=== PATIENT | male | born 1980 | race Caucasian/White ===

== ENCOUNTER 2017-12-18 10:30 | Emergency (ER) | payer MEDICAID ==
[2017-12-18] MEDS: KETOROLAC 60 MG INJ IM (14:42)
[2017-12-18] MEDS: LIDOCAINE 1% (MDV) 20 ML INJ SC (17:19)
== END 2017-12-18 17:30 | disposition home or self-care (01) ==
LOC: FTE 10:30
DX: M79.605 Pain in left leg (principal)
CPT/HCPCS: 93971; 96372; 99285-25

== ENCOUNTER 2019-06-02 12:48 | Emergency (ER) | payer MEDICAID ==
[2019-06-02] MEDS: IBUPROFEN 200 MG TAB PO (14:41)
[2019-06-02] MEDS: HYDROCODONE/APAP (5/325) TAB PO (14:41)
[2019-06-02 14:54] LABS: ADD UMIC NO; UR ASCORBIC ACID NEGATIVE (NEGATIVE); UR BILIRUBIN (Dip) NEGATIVE (NEGATIVE); UR BLOOD (Dip) NEGATIVE (NEGATIVE); UR CLARITY CLEAR (CLEAR); UR COLOR YELLOW (YELLOW); UR GLUCOSE (Dip) NEGATIVE (NEGATIVE); UR KETONES (Dip) NEGATIVE (NEGATIVE); UR LEUKOCYTE ESTERASE (Dip) NEGATIVE Leu/ul (NEGATIVE); UR NITRITE (Dip) NEGATIVE (NEGATIVE); UR SPECIFIC GRAVITY (Dip) 1.011 (1.003-1.030); UR TOTAL PROTEIN (Dip) NEGATIVE (NEGATIVE); UR UROBILINOGEN (Dip) NEGATIVE (NEGATIVE)
== END 2019-06-02 15:44 | disposition home or self-care (01) ==
LOC: FTE 12:48
DX: M51.36 Other intervertebral disc degeneration, lumbar region (principal)
CPT/HCPCS: 72100; 81003; 99284-25